=== PATIENT | male | born 1945 | race Hispanic/Latino ===

== ENCOUNTER → 2018-06-08 | Outpatient (CLI) | payer OTHER ==
[~2018-06-08] MED LIST: ASPI-1197 PO; ATOR10 PO; BISA5TAB52 PO; LOSA100T58 PO; TAMS0.4C32 PO
== END | disposition home or self-care (01) ==
LOC: RAH 15:40
PROVIDERS: ATTEND Internal Medicine
DX: I65.23 Occlusion and stenosis of bilateral carotid arteries (principal)
CPT/HCPCS: 93880